=== PATIENT | female | born 1980 | race African-American/Black ===

== ENCOUNTER 2025-06-30 14:27 | Emergency (ER) | payer OTHER ==
[2025-06-30] MEDS ORDERED: Pantoprazole 40 MG VIAL ONE (14:48)
[2025-06-30 15:19] LABS: #Basophils 0.05 10x3/uL (0.0-0.2); #Eosinophils 0.13 10x3/uL (0.0-0.5); #Monocytes 0.61 10x3/uL (0.0-1.1); #Neutrophils 1.22 10x3/uL (1.5-8.4); %Basophils 1.1 % (0.0-2.0); %Eosinophils 2.9 % (0.0-6.0); %Lymphocytes 55.6 % (18.0-47.0); %Monocytes 13.5 % (0.0-10.0); %Neutrophils 26.9 % (40.0-75.0); Hematocrit 23.5 % (34.9-44.5); Hemoglobin 6.0 g/dL (12.0-15.5); Mean Corpuscular Hemoglobin 14.7 pg (27.0-33.0); Mean Corpuscular Volume 57.6 fL (81.6-98.3); Platelet Count 241 10x3/uL (150-450); Red Blood Cell (RBC) Count 4.08 10x6/uL (3.90-5.03); White Blood Cell (WBC) Count 4.53 10x3/uL (3.5-10.5)
[2025-06-30 15:34] LABS: ALT (SGPT) 8 U/L (Less than 34); AST (SGOT) 23 U/L (11-34); Albumin 4.3 g/dL (3.1-4.5); Alkaline Phosphatase 24 U/L (40-110); Anion Gap 15 mmol/L (10-20); BUN (Urea Nitrogen) 12 mg/dL (7.0-18.7); Bilirubin, Total 0.7 mg/dL (0.3-1.2); Calc. Creatinine Clearance 0 mL/min (70-130); Calcium 8.8 mg/dL (7.8-10.44); Carbon Dioxide 22 mmol/L (22-29); Chloride 107 mmol/L (98-107); Globulin 4.0 g/dL (2.4-3.5); Glucose 75 mg/dL (70-105); Potassium 3.9 mmol/L (3.5-5.1); Sodium 140 mmol/L (136-145)
[2025-06-30 16:30] LABS: Anisocytosis SLIGHT = 6-15 cells (100X) (0-5/hpf); MDiff Complete? YES; Microcytosis MARKED = >30 cells (100X) (0-5/hpf); Platelet Adequacy Comment Appears Adequate; Poikilocytosis MODERATE=16-30 cells (100X) (0-5/hpf); Polychromasia SLIGHT = 2-3 cells (100X) (0-2/hpf); Schistocytes MODERATE= 6-15 cells (100X) (0-1/hpf); Target Cells SLIGHT = 2-5 cells (100X) (0-1/hpf)
[2025-06-30 16:37] LABS: Reflex for Review?? YES
== END 2025-06-30 19:49 | disposition home or self-care (01) ==
LOC: CSHERS 14:27
DX: D62 Acute posthemorrhagic anemia (principal); N93.8 Other specified abnormal uterine and vaginal bleeding
CPT/HCPCS: 36415; 36430; 80053; 85025; 85060; 86850; 86900; 86901; 99284; J2470; P9016

== ENCOUNTER 2025-07-13 09:03 | Outpatient (CLI) | payer OTHER | END 2025-07-13 09:04 | disposition home or self-care (01) | LOC: CSHMAMMO 09:03 | PROVIDERS: ATTEND Nurse Practitioner Family | DX: N64.4 Mastodynia (principal) | CPT/HCPCS: 77066; G0279 ==